=== PATIENT | female | born 1995 | race Caucasian/White ===

== ENCOUNTER → 2016-11-28 | Outpatient (CLI) | payer BC ==
[~2016-11-28] MED LIST: DROS3TAB PO; SPIR25TA PO
[2016-11-28 14:23] LABS: BASO % 0.4 %; BASO ABS # 0.03 K/uL (0-0.2); COMPLETE YES; EOS % 5.1 %; IG% 0.1 %; LYMPH % 31.8 %; LYMPH ABS # 2.61 K/uL (1.2-3.4); MEAN CELL VOLUME 86.3 fL (80-100); MEAN CORPUSCULAR HEMOGLOBIN 28.6 pg (25-34); MEAN CORPUSCULAR HGB CONC 33.1 g/dl (32-36); MEAN PLATELET VOLUME 9.8 fL (7.4-10.4); MONO % 7.1 %; NEUT % 55.5 %; PLATELET COUNT 339 K/uL (130-400); RED BLOOD COUNT 3.71 M/uL (4.2-5.4); WHITE BLOOD COUNT 8.22 K/uL (4.8-10.8)
[2016-11-28 14:35] LABS: ALT/SGPT 13 U/L (12-78); BLOOD UREA NITROGEN 7 mg/dl (7-18); BUN/CREATININE RATIO 13.7 (10-20); CALCIUM 8.9 mg/dl (8.5-10.1); CARBON DIOXIDE 23 mmol/L (21-32); CHLORIDE 104 mmol/L (98-107); CREATININE 0.51 mg/dl (0.60-1.20); GLUCOSE 70 mg/dl (70-99); POTASSIUM 3.9 mmol/L (3.5-5.1); SODIUM 138 mmol/L (136-145)
[2016-11-28 14:38] LABS: ALB/GLOB RATIO 0.9 (0.9-2); ALKALINE PHOSPHATASE 55 U/L (45-117); AST/SGOT 12 U/L (15-37)
== END | disposition home or self-care (01) ==
LOC: C.LAB1850 13:09
PROVIDERS: ATTEND Obstetrics & Gynecology
DX: G89.18 Other acute postprocedural pain (principal)

== ENCOUNTER → 2017-03-27 | Outpatient (CLI) | payer BC ==
[~2017-03-27] MED LIST changes: +LIDO2SOL19 PO; +PANT40TA PO
== END | disposition home or self-care (01) ==
LOC: C.PAPS 07:51
PROVIDERS: ATTEND Obstetrics & Gynecology
DX: Z01.419 Encounter for gynecological examination (general) (routine) without abnormal findings (principal)

== ENCOUNTER 2017-09-10 23:20 | Emergency (ER) | payer BC ==
[~2017-09-10] VITALS: Ht 162.6 cm; Wt 52.4 kg
[~2017-09-10 23:20] MED LIST changes: -LIDO2SOL19 PO; -PANT40TA PO
[2017-09-10 23:25] VITALS: TEMP 36.9; Ht 162.6 cm; Wt 52.4 kg
[2017-09-10] MEDS ORDERED: LIDOCAINE HCL 2% VISC SOLN 20 ML UDC PO STA (23:34)
[2017-09-10] MEDS ORDERED: ALUMINUM/MAGNESIUM SUSP 30 ML UDC PO STA (23:34)
[2017-09-11 00:03] LABS: BASO % 0.1 %; BASO ABS # 0.01 K/uL (0-0.2); COMPLETE YES; EOS % 0.3 %; HEMATOCRIT 36.3 % (37-47); IG% 0.2 %; LYMPH % 27.8 %; LYMPH ABS # 2.88 K/uL (1.2-3.4); MEAN CELL VOLUME 88.3 fL (80-100); MEAN CORPUSCULAR HEMOGLOBIN 29.4 pg (25-34); MEAN CORPUSCULAR HGB CONC 33.3 g/dl (32-36); MEAN PLATELET VOLUME 8.9 fL (7.4-10.4); MONO % 8.2 %; NEUT % 63.4 %; PLATELET COUNT 242 K/uL (130-400); RED BLOOD COUNT 4.11 M/uL (4.2-5.4); WHITE BLOOD COUNT 10.37 K/uL (4.8-10.8)
[2017-09-11 00:21] LABS: BUN/CREATININE RATIO 13.2 (10-20); CALCIUM 8.7 mg/dl (8.5-10.1); CREATININE 0.68 mg/dl (0.60-1.20); POTASSIUM 3.4 mmol/L (3.5-5.1)
[2017-09-11 00:22] VITALS: O2SAT 99
[2017-09-11 00:31] LABS: PREG INTERNAL NEGATIVE QC NEG CLEAR BACKGROUND; PREG INTERNAL POSITIVE QC POS CONTROL LINE
[2017-09-11] MEDS ORDERED: SUCRALFATE 1 GM/10 ML UDC PO STA (00:56)
[2017-09-11] MEDS ORDERED: PANTOprazole SOD 40 MG TAB PO STA (00:56)
[2017-09-11] MEDS ORDERED: POTASSIUM CHLORIDE 10 MEQ TABCR PO STA (00:56)
[2017-09-11 01:22] LABS: LYME DISEASE AB IGG NEG (NEG); LYME DISEASE AB IGM NEG (NEG)
--- NOTE | 2017-09-11 01:23 | EMERGENCY ROOM VISIT NOTE ---
History First contact with patient: 23:30 Chief Complaint: CHEST PAIN Stated Complaint: CHEST PAIN Nursing Triage Summary: Pain in her chest and esophagus that started last night after taking doxy right before bed. Patient denies history of acid reflux. History of Present Illness The patient is a 22 year old female who presents to the Emergency Room with complaints of chest discomfort for the past 2 days after taking doxycycline for possible Lyme's disease per patient for the past 6 weeks. Patient states every time she swallows or eats she feels discomfort in her mid chest esophageal area. Patient denies any black or blood in her stool. Patient has been on doxycycline for the past 6 weeks. She got this with the [facility] doctor. She is unsure the name of the provider. Patient denies dyspnea, fever, chills, leg pain or swelling, recent travel, tobacco use, control, family history of heart disease or blood clots, abdominal pain, nausea, vomiting, diarrhea. She had no Lyme test done and had a tick on her less than 12 hours with no erythema migrans or flulike illness. Patient states she had no complaints after the tick bite. Review of Systems See HPI for pertinent positives & negatives. A total of 10 systems reviewed and were otherwise negative. Past Medical/Surgical History Surgical Problems: (1) History of wisdom tooth extraction Acne Social History Smoking Status: Never Smoker Alcohol Use: none Drug Use: none Marital Status: single Housing Status: lives with roommate Occupation Status: [employer] student Current/Historical Medications Scheduled Spironolactone (Aldactone), 25 MG PO QAM Physical Exam Vital Signs Date Time Temp Pulse Resp B/P (MAP) Pulse Ox O2 Delivery O2 Flow Rate FiO2 09/11/17 00:50 75 16 09/11/17 00:31 108/59 09/11/17 00:22 99 Room Air 09/11/17 00:20 85 20 09/11/17 00:14 81 09/11/17 00:10 109/76 09/10/17 23:56 99 Room Air 09/10/17 23:25 36.9 91 18 117/77 95 Physical Exam VITALS: Vitals are noted on the nurse's note and reviewed by myself. Vital signs stable. GENERAL: Pleasant female, in no acute distress, nondiaphoretic, well-developed well-nourished. SKIN: The skin was without rashes, erythema, edema, or bruising. There is no tenting of the skin. Capillary reflex less than 2 seconds. HEAD: Normocephalic atraumatic. EARS: External auditory canals clear, tympanic membranes pearly hilliard without erythema or effusion bilaterally. EYES: Pupils equal round and reactive to light and accommodation. Conjunctivae without injection, sclerae without icterus. Extraocular movements intact. NOSE: Patent, turbinates without inflammation or discharge. MOUTH: Mucous membranes moist. Pharynx without erythema or exudate. Uvula midline. Airway patent. Tongue does not deviate. NECK: Supple without nuchal rigidity. No lymphadenopathy. No thyromegaly. Cervical spine is nontender. No JVD. HEART: Regular rate and rhythm without murmurs gallops or rubs. Chest nontender to palpation. LUNGS: Clear to auscultation bilaterally without wheezes, rales or rhonchi. No dullness to percussion. No retractions or accessory muscle use. ABDOMEN: Positive bowel sounds x 4. Normal tympanic percussion. Soft, nontender, without masses or organomegaly. Vuong sign negative. No guarding or rebound tenderness. MUSCULOSKELETAL: No muscle atrophy, erythema, or edema noted. NEURO: Patient was alert and oriented to person place and time. Normal sensation to light and sharp touch. No focal neurological deficits. Medical Decision & Procedures Laboratory Results 09/10/17 23:51 Red Blood Count 4.11, Mean Corpuscular Volume 88.3, Mean Corpuscular Hemoglobin 29.4, Mean Corpuscular Hemoglobin Concent 33.3, Mean Platelet Volume 8.9, Neutrophils (%) (Auto) 63.4, Lymphocytes (%) (Auto) 27.8, Monocytes (%) (Auto) 8.2, Eosinophils (%) (Auto) 0.3, Basophils (%) (Auto) 0.1, Neutrophils # (Auto) 6.58, Lymphocytes # (Auto) 2.88, Monocytes # (Auto) 0.85, Eosinophils # (Auto) 0.03, Basophils # (Auto) 0.01 09/10/17 23:51 Test 09/10/17 23:51 09/10/17 23:56 White Blood Count 10.37 K/uL (4.8-10.8) Red Blood Count 4.11 M/uL (4.2-5.4) Hemoglobin 12.1 g/dL (12.0-16.0) Hematocrit 36.3 % (37-47) Mean Corpuscular Volume 88.3 fL (80-100) Mean Corpuscular Hemoglobin 29.4 pg (25-34) Mean Corpuscular Hemoglobin Concent 33.3 g/dl (32-36) Platelet Count 242 K/uL (130-400) Mean Platelet Volume 8.9 fL (7.4-10.4) Neutrophils (%) (Auto) 63.4 % Lymphocytes (%) (Auto) 27.8 % Monocytes (%) (Auto) 8.2 % Eosinophils (%) (Auto) 0.3 % Basophils (%) (Auto) 0.1 % Neutrophils # (Auto) 6.58 K/uL (1.4-6.5) Lymphocytes # (Auto) 2.88 K/uL (1.2-3.4) Monocytes # (Auto) 0.85 K/uL (0.11-0.59) Eosinophils # (Auto) 0.03 K/uL (0-0.5) Basophils # (Auto) 0.01 K/uL (0-0.2) RDW Standard Deviation 39.2 fL (36.4-46.3) RDW Coefficient of Variation 12.2 % (11.5-14.5) Immature Granulocyte % (Auto) 0.2 % Immature Granulocyte # (Auto) 0.02 K/uL (0.00-0.02) D-Dimer < 190 ug/L FEU (0-500) Anion Gap 8.0 mmol/L (3-11) Est Creatinine Clear Calc Drug Dose 108.3 ml/min Estimated GFR () 144.9 Estimated GFR (Non- 125.0 BUN/Creatinine Ratio 13.2 (10-20) Calcium Level 8.7 mg/dl (8.5-10.1) Total Bilirubin 0.6 mg/dl (0.2-1) Direct Bilirubin 0.1 mg/dl (0-0.2) Aspartate Amino Transf (AST/SGOT) 17 U/L (15-37) Alanine Aminotransferase (ALT/SGPT) 27 U/L (12-78) Alkaline Phosphatase 69 U/L (45-117) Total Protein 7.5 gm/dl (6.4-8.2) Albumin 3.8 gm/dl (3.4-5.0) Lipase 139 U/L (73-393) Human Chorionic Gonadotropin, Qual NEG (NEG) Bedside Troponin I < 0.030 ng/ml (0-0.045) Medications Administered Medications (Trade) Dose Ordered Sig/Pasqulae Route Start Time Stop Time Status Last Admin Dose Admin Lidocaine HCl (Viscous Lidocaine 2% Soln) 10 ml NOW STAT PO 09/10/17 23:34 09/10/17 23:35 DC 09/10/17 23:34 10 ML Al Hydroxide/Mg Hydroxide (Maalox Susp) 30 ml NOW STAT PO 09/10/17 23:34 09/10/17 23:35 DC 09/10/17 23:34 30 ML Sucralfate (Carafate Susp) 1 gm NOW STAT PO 09/11/17 00:56 09/11/17 00:57 DC 09/11/17 01:11 1 GM Potassium Chloride (Klor-Con M10) 10 meq NOW STAT PO 09/11/17 00:56 09/11/17 00:57 DC 09/11/17 01:12 10 MEQ Pantoprazole Sodium (Protonix Tab) 40 mg NOW STAT PO 09/11/17 00:56 09/11/17 00:57 DC 09/11/17 01:12 40 MG ED Course Prior records/ancillary studies reviewed. Triage Nursing notes reviewed. Additional history obtained from family The patient's history was concerning for chest pain after taking doxycycline. Differential diagnosis: Etiologies such as pill induced esophagitis, cardiac ischemia, aortic dissection , pulmonary embolism, pneumonia, pneumothorax, musculoskeletal, infections, pericarditis, myocarditis, esophageal rupture, gastrointestinal, as well as others were entertained. Physical examination: As above. ER treatment provided: GI cocktail, Carafate, Protonix On reassessment the patient felt better. Diagnostic interpretation by me: The electrocardiogram was normal sinus, incomplete right bundle-branch block, T- wave inversions in V1 2 and 3, normal intervals, rate of 77. Impression incomplete right intervention block interpreted by myself The labs revealed negative troponin. Negative d-dimer Imaging studies: Chest x-ray with no acute consolidation, pneumothorax or free air per my interpretation Exam and history seem consistent with esophagitis most likely from taking the doxycycline. Symptoms started directed after taking the doxycycline and symptoms are worse when she eats or drinks. She has no black or blood in her stool. She felt better after being medicated as above. She is advised to take medications as directed and to stop the doxycycline. She is advised to follow- up family care in a few days and/or GI symptoms persist or here in the ER sooner for chest pain, difficulty breathing, black or blood in her stool, worsening signs or symptoms or as needed. Patient did not have an acute abdomen on exam. She is well-appearing. Negative pronator. Negative d-dimer. By the evaluation outlined above emergent etiologies such as cardiac ischemia, aortic dissection, pulmonary embolism, pneumonia, pneumothorax, infections, pericarditis, myocarditis, gastrointestinal, as well as others were deemed relatively unlikely. The pt informed about the findings as listed above. All questions were answered and pleased with the treatment. Return instructions were outlined and the patient was discharged in stable condition. Outpatient prescription management: Protonix Referral: The patient was referred back to primary care physician for follow-up in 2 to 3 days for a recheck of the current condition. Case reviewed with my attending Medical Decision As above Medication Reconcilliation Current Medication List: was personally reviewed by me Blood Pressure Screening Patient's blood pressure: Normal blood pressure Impression Primary Impression: Esophagitis due to doxycycline Departure Information Dispostion Home / Self-Care Condition GOOD Referrals Christine Ricardo M.D. (PCP) Patient Instructions My [facility] Additional Instructions Stop your doxycycline. Protonix 40 m tablet daily for next 2 weeks. Take this on an empty stomach. Try Maalox or Zantac for breakthrough symptoms for reflux. Avoid large meals. Avoid acidic foods. Rest and drink plenty of fluids as tolerated. Continue current medications. Avoid strenuous activities and anything that worsens your pain. Resume normal activities once your symptoms resolve. Return to the ER immediately for worsening or persistent chest pain, abdominal pain, black or blood in your stools, vomiting, fevers, chest pains, difficulty breathing, worsening of your condition, or as needed. Follow up with your primary physician in 2-3 days for a recheck of your current condition. Follow up with gastroenterology if symptoms not resolve within 1-2 weeks.
[2017-09-11] MEDS ORDERED: PANT40TA PO (01:24)
[2017-09-11] MEDS ORDERED: ALUMINUM/MAGNESIUM SUSP 30 ML UDC PO STA (01:41)
[2017-09-11] MEDS ORDERED: LIDOCAINE HCL 2% VISC SOLN 20 ML UDC PO STA (01:41)
[2017-09-11 01:51] VITALS: BP 125/80; PULSE 68; O2SAT 99
--- NOTE | 2017-09-11 07:15 | DIAGNOSTIC IMAGING REPORT ---
CHEST ONE VIEW PORTABLE HISTORY: Atypical chest pain. COMPARISON: None. FINDINGS: The lungs are clear. Cardiac silhouette is normal in size. No pleural effusions. No pneumothorax. IMPRESSION: No acute process. Electronically signed by: Clarence Campo M.D. 09/11/2017 7:14 AM Dictated Date/Time: 09/11/2017 7:13 AM
[2017-09-13] MEDS ORDERED: LIDO2SOL19 PO (02:30)
== END 2017-09-11 01:55 | disposition home or self-care (01) ==
LOC: C.EDB 23:21
DX: K20.8 Other esophagitis (principal)

== ENCOUNTER → 2018-02-11 | Outpatient (CLI) | payer BC ==
[~2018-02-11] MED LIST changes: -DROS3TAB PO
--- NOTE | 2018-02-15 16:10 | EEG Procedure Note ---
EEG Procedure Note Date of Service February 12, 2018. Start / End Times Start Time: 2:00pm End Time: 2:21pm Referring Physician Rahat Milan History 23 year old female with feeling of depersonalization. EEG for further evaluation of possible seizure etiology. Home Medication List Scheduled Spironolactone (Aldactone), 25 MG PO QAM Description This is a 21 electrode EEG with a single channel dedicated to limited EKG. The electrodes were placed in accordance with the International 10-20 system. At the start of the recording the patient was in an awake state. The background was well organized and composed of symmetric mixed alpha and beta frequencies. There was a well formed symmetric moderate amplitude posterior dominant rhythm of 10-11Hz that was reactive to eye opening and closure. Hyperventilation was not done. Photic stimulation at various frequencies produced no abnormalities. There was no state changes or sleep transients. Interpretation This is a normal awake only routine EEG There was no electrographic seizures or epileptiform discharges. Clinical Correlation A normal EEG does not rule out epilepsy if there is a strong clinical suspicion.
== END | disposition home or self-care (01) ==
LOC: C.NEUR 13:47
PROVIDERS: ATTEND Psychiatry & Neurology Neurology
DX: F48.1 Depersonalization-derealization syndrome (principal)